=== PATIENT | female | born 1950 | race Caucasian/White ===

== ENCOUNTER 2019-03-03 11:10 | Emergency (ER) | payer MEDICARE, OTHER ==
--- NOTE | 2019-03-03 11:18 | ED Physician Documentation ---
General Adult - HISTORIAN Historian: patient - HPI Stated Complaint: nausea/vomiting Chief Complaint: General Adult Onset: hours Timing: still present Further Comments: yes (Pt is a 68 yo female with c/o nausea/vomiting since 5 pm last evening. Pt is traveling with from [place]. Pt initially thought that she was car sick, but nausea has not resolved. Pt states that she tends to get low potassium when she is sick. No cp/sob/diaphoresis.) - ROS CONST: other (malaise) EYES/ENT: none CVS/RESP: none GI/: vomiting, nausea - PAST HX Past History: other (HTN, Depression, GERD) Surgeries/Procedures: other (appendectomy) Allergies/Adverse Reactions: Allergies Allergy/AdvReac Type Severity Reaction Status Date / Time polyethylene glycol Allergy Verified 03/03/19 11:21 Home Medications: Ambulatory Orders Medication Instructions Recorded Irbesartan 1 tab PO DAILY 03/03/19 Omeprazole 1 cap PO DAILY 03/03/19 Triamterene/Hydrochlorothiazid 1 tab PO DAILY 03/03/19 [Triamterene-Hctz 37.5-25 mg Cp] Venlafaxine HCl [Effexor] 0.5 tab PO DAILY 03/03/19 Venlafaxine HCl [Effexor] 1 tab PO DAILY 03/03/19 - SOCIAL HX Smoking History: non-smoker - FAMILY HX Family History: No - REVIEWED ASSESSMENTS Nursing Assessment Reviewed: Yes Vitals Reviewed: Yes Progress - Progress Progress: NS 1 L IVF x 2 Zofran 4 mg IV improved Rx Zofran ODT 4 mg. Take one every 8 hours as needed for nausea/vomiting. General Adult Physical Exam - PHYSICAL EXAM GENERAL APPEARANCE: moderate distress EENT: pharynx normal NECK: normal inspection, supple RESPIRATORY: no resp distress, chest non-tender, breath sounds normal CVS: reg rate & rhythm, heart sounds normal ABDOMEN: soft, no organomegaly, normal bowel sounds, tenderness (diffuse (pt says from vomiting)) BACK: normal inspection, no CVA tenderness SKIN: warm/dry EXTREMITIES: non-tender NEURO: oriented X3, motor nml, sensation nml Discharge Clincal Impression: nausea/vomiting Referrals: Primary Doctor,No [Primary Care Provider] - Condition: Stable Disposition: 01 HOME, SELF-CARE Decision to Admit: NO Decision Time: 14:00
[2019-03-03 11:28] VITALS: BP 132/64
[2019-03-03] MEDS: ONDANSETRON HCL/PF 4 MG/ 2ML VIAL IVP ONE (11:34)
[2019-03-03] MEDS: 0.9 % SODIUM CHLORIDE 1,000 ML IV ONE ×2 (11:36→12:52)
[2019-03-03 11:44] LABS: BASOPHILS % 0.4 % (0.0-1.5); NEUTROPHILS # 8.1 # k/uL (1.4-7.7)
[2019-03-03 12:03] LABS: eGFR (Non-African) > 60
[2019-03-03] MEDS: POTASSIUM CHLORIDE 20 MEQ TABLET.ER PO ONE (12:52)
== END 2019-03-03 13:59 | disposition home or self-care (01) ==
LOC: ED 11:10
DX: R11.2 Nausea with vomiting, unspecified (principal)
CPT/HCPCS: 80053; 85025; 96361; 96374; 99283; 99284; J2405; A9270; J7030; S1016